=== PATIENT | male | born 1965 | race Caucasian/White ===

== ENCOUNTER 2023-09-27 08:05 | Day surgery (SDC) | payer BC, SELFPAY ==
[2023-09-27] VITALS (12 sets, daily range): BP systolic 121–173; BP diastolic 73–103; BMI 34.2
[2023-09-27] MEDS: NSS 500 IV (08:49)
[2023-09-27 08:54] LABS: Glucose - Point of Care 118 mg/dl (70-99)
[2023-09-27 11:37] LABS: ACT-LR - POC 247 Seconds (116-155)
[2023-09-27 12:00] LABS: ACT-LR - POC 287 Seconds (116-155)
[2023-09-27 12:19] LABS: ACT-LR - POC 294 Seconds (116-155)
--- NOTE | 2023-09-27 12:50 | ITS.CL.ABL ---
[facility] - Ablation
Ablation
Procedure Report:
ELECTROPHYSIOLOGY ABLATION STUDY
DATE:: September 27, 2023 REFERRING: Dr. Zavala at [facility]
INDICATION: Symptomatic persistent atrial fibrillation. Failed antiarrhythmic drug therapy with amiodarone.
HISTORY: See H and P. Prior pulmonary vein isolation at [facility] with Dr. Zavala in 2018 with a 28 mm cryoballoon, and prior right atrial flutter ablation in 2013, who is referred from [facility] for redo ablation with pulsed field
ablation. Prior [address] Suazo at [facility]. Atrial fibrillation is recurrent on amiodarone therapy.
ANTIARRHYTHMIC DRUG: Amiodarone
PRE-PROCEDURE CATY: No atrial thrombus
PRESENTING RHYTHM: Atrial fibrillation
'TIME-OUT': called and confirmed.
SEDATION/ANESTHESIA: provided via the anesthesia department using general anesthesia (LMA).
INTRAVENOUS/ARTERIAL ACCESS:
Right femoral venous - 8Fr
Left femoral venous - 8 Fr, 6 Fr
Ultrasound guidance for bilateral femoral vein access was utilized by ny to obtain access with demonstration of normal anatomy
The venous access sites in both femoral veins were closed with Vascade closure system
PROCEDURE:
1. A decapolar CS catheter was placed within the CS for mapping and pacing. This was also used as the reference catheter for the 3-D map.
2. The intracardiac ultrasound catheter was positioned in the RA to identify the FO for targeting of transseptal puncture, assist in identification of the pulmonary vein ostia, monitoring pre and post ablation pulmonary vein flow velocities,
monitoring for 'bubble' formation during RF application as a sign of thermal injury, and to monitor for pericardial effusion during mapping and ablation procedure. Left atrial size, LV ejection fraction, and pulmonary vein flows were monitored
pre and post ablation procedure. The other valves were inspected and found to be free of significant regurgitation or stenosis.
3. Half of the calculated heparin bolus was administered prior to the first transeptal puncture. Transseptal puncture was performed to diagnose RA and LA pressure so that safety of LA mapping and ablation could be further assessed, and to access
the left atrium and pulmonary veins for mapping and ablation. This entailed advancing the 10 Somali contour sheath with dilator apparatus into the superior vena cava and withdrawing both (monitoring intracardiac ultrasound, fluoroscopy and tip
pressure) with the tip oriented toward the atrial septum. The fossa ovalis was engaged (indicated by sudden displacement of the sheath tip as well as tenting of the fossa seen on intracardiac ultrasound). Left atrial access required a pass with
the [place] needle extended. Left atrial catheter position was confirmed by pressure monitoring (RA mean pressure 8 mm Hg and LA mean pressure 14 mm Hg), LA saturation (99%), as well as fluoroscopy. The sheath was advanced over the dilator
and positioned in the left atrium. The remainder of the calculated heparin bolus was administered and heparin was
infused to maintain ACT at 300 -350 seconds throughout the case. There was trace mitral regurgitation from the prior mitral valve repair. There is dense calcification around the sewing ring particularly on the lateral aspect. There is a small
mobile chordae or suture material noted at the lateral sewing ring (which we noted after left atrial access) which was observed and monitored throughout the duration of the case and stable at the end of the procedure.
4. RA pacing was performed via the proximal decapolar poles and LA pacing was performed via the distal decapolr poles.
5. A quadrapolar catheter was first positioned at the His position for His Bundle recording which was tagged via the 3-D Navex sytem, and then passed to the RVA for RV pacing and recording.
6. The multipolar catheter was placed in each of the LIPV, LSPV, RSPV and the RIPV. The left inferior pulmonary vein was connected to the posterior obie, the right superior pulmonary vein was connected at the obie, and the right inferior
pulmonary vein was connected at the inferior posterior region.
7. Next, a 3-D map was created using Navex. A 3-D reconstructed CT image was compared to the 3-D Navex map to assist in anatomic interpretation, mapping and ablation. The CT image and the NavX image were fused.
8. Utilizing the pulse select catheter the left and right pulmonary veins were isolated ostially and anteriorly and the posterior wall was isolated from roof to the floor. There was a small area of far field recording at the posterior roof outside
the right superior pulmonary vein and roof of the left atrium towards the interatrial septum that persisted and was not further ablated as we could capture the signal from the right atrium and bring it in towards the right atrial capture signal.
Entrance next block was confirmed in all 4 pulmonary veins after cardioversion and electrical silence and noncapture of the posterior wall was also confirmed.
9. Normal sinus node and AV maninder function was noted. Atrial extrastimuli was performed from both atria and no additional arrhythmia was induced. Imaging of the left atrium and right atrium demonstrated no pericardial effusion and this presumed
chordae or suture material by the sewing ring was intact and stable in terms of morphology and position. Vascular closure was performed with adequate hemostasis and anesthesiology proceeded to extubation.
TOTAL FLOURO TIME: 21.7 minutes 327 mGy
TOTAL RF DURATION: 0 minutes
REVERSAL OF HEPARIN: 35 mg of protamine, slow IV administration
COMPLICATIONS:
None
Intracardiac US shows no pericardial effusion post ablation.
SUMMARY:
Complex left atrial mapping and ablation.
Reisolation of the left and right pulmonary veins as well as isolation of left atrial posterior wall.
RECOMMENDATIONS:
1. Admit to monitored bed.
2. Resume anticoagulation and consider discontinuing amiodarone in 1 month
3. Out of bed 2 hours
4. Consider same-day discharge if the patient is stable
Copy to: Dr. Zavala Electrophysiology at [facility]
[2023-09-27] MEDS: TYLENOL 650 MG PO (13:27)
[2023-09-27 13:58] LABS: Glucose - Point of Care 154 mg/dl (70-99)
[2023-09-27] MEDS: ANESTHETIC LOZENGE 1 LOZENGE PO (14:14)
--- NOTE | 2023-09-27 17:06 | W.PN.UPDATE ---
Update Note
Progress Note Update
PT seen post PFA. Bilat groins with vascade closure, no ht/bleeding, OOB ambulating, urinating without difficulty. Post EKG NST w/PVCs, no acute changes. Resume eliquis tonight. Followup at w/Dr. Pino once and then Dr. Zavala thereafter. Home
today if groin sites/tele remain stable.
== END 2023-09-27 16:01 | disposition home or self-care (01) ==
LOC: CATH 08:05
PROVIDERS: ATTENDING PHYSICIAN Internal Medicine Cardiovascular Disease
DX: I48.19 Other persistent atrial fibrillation (principal); Z88.1 Allergy status to other antibiotic agents; Z79.01 Long term (current) use of anticoagulants
CPT/HCPCS: C1732; C1894; C1730; C1733; C1769; C1892; C1766; C1759; 76937; 82962; 85347; 86850; 86900; 86901; 93005; 93656; C1760